=== PATIENT | male | born 1945 | race Caucasian/White ===

== ENCOUNTER → 2021-02-26 | Outpatient (CLI) | payer MEDICARE, OTHER ==
[2021-02-28 14:27] LABS: CORONAVIRUS (COVID19) CSH-NRL Negative (Negative)
== END | disposition home or self-care (01) ==
LOC: LAB 13:24 → LAB SHORT 13:24
PROVIDERS: Family Medicine
DX: R43.2 Parageusia (principal); Z20.828 Contact with and (suspected) exposure to other viral communicable diseases; Z20.822 Contact with and (suspected) exposure to COVID-19
CPT/HCPCS: U0003

== ENCOUNTER 2023-09-09 11:13 | Day surgery (SDC) | payer MEDICARE, OTHER ==
[~2023-09-09] VITALS: Ht 185.4 cm; Wt 86.5 kg
[2023-09-09] MEDS ORDERED: METO50ER PO (11:30)
[2023-09-09] MEDS ORDERED: LOSA25 PO (11:31)
[2023-09-09] MEDS ORDERED: HYDCHL25 PO (11:31)
[2023-09-09] MEDS ORDERED: ATOR40TA PO (11:31)
--- NOTE | 2023-09-09 11:45 | NUR ---
09/09/23 1145 Brea Castro AT 1132 PLEDGET AT 1133
[2023-09-09 13:42] VITALS: BP 152/88
--- NOTE | 2023-09-09 13:45 | NUR ---
09/09/23 134Abigail Morelos CONSULTED DR CALLAHAN D/T PATIENT CONTINUED TO HAVE REGULARLY IRREGULAR HEART BEAT WITH WHAT SOUNDS LIKE CONSISTENT EXTRA BEAT. PATIENT DENIED SYMPTOMS INCLUDING CHEST PAIN, SOB, LIGHTHEADEDNESS,DIZZINESS OR OTHERS. PER DR CALLAHAN LONG PATIENT IS NOT HAVING SYMPTOMS HE IS OK TO DISCHARGE. RN COMMUNICATED THE ABOVE WITH PATIENT AND HIS AND ENCOURAGED THEM TO SEEK MEDICAL CARE IF PATIENT DOES DEVELOP SYMPTOMS INCLUDING DIZZY SPELLS, LIGHTHEADEDNESS, CHEST PAIN, SHORTNESS OF BREATH, OR OTHER CONCERNS. PATIENT AND VERBALIZED UNDERSTANDING.
== END 2023-09-09 13:38 | disposition home or self-care (01) ==
LOC: ORSCSDS 11:13
PROVIDERS: Student in an Organized Health Care Education/Training Program
PROC: 08RK3JZ Replacement of Left Lens with Synthetic Substitute, Percutaneous Approach (ICD-10-PCS; principal; 2023-09-09 12:30)
DX: H25.13 Age-related nuclear cataract, bilateral (principal); I10 Essential (primary) hypertension; E78.5 Hyperlipidemia, unspecified; Z87.891 Personal history of nicotine dependence; Z79.899 Other long term (current) drug therapy
CPT/HCPCS: J2250; J3010; J7040; V2632